=== PATIENT | male | born 2000 | race Caucasian/White ===

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

== ENCOUNTER 2023-10-01 11:22 | Emergency (ER) | payer BC ==
[2023-10-01] MEDS ORDERED: Bicillin LA 1.2 MILLION UNITS/2 ML SYRINGE ONE (12:05)
== END 2023-10-01 12:21 | disposition home or self-care (01) ==
LOC: NAV ERS 11:22
DX: J02.9 Acute pharyngitis, unspecified (principal); F17.210 Nicotine dependence, cigarettes, uncomplicated
CPT/HCPCS: 96372; 99283; J0561